=== PATIENT | female | born 1975 ===

== ENCOUNTER → 2017-03-14 | Outpatient (CLI) | payer OTHER | END | disposition home or self-care (01) | LOC: C.PAPS 09:49 | PROVIDERS: ATTEND Physician Assistant | DX: Z01.419 Encounter for gynecological examination (general) (routine) without abnormal findings (principal) ==

== ENCOUNTER → 2017-03-27 | Outpatient (CLI) | payer OTHER ==
[2017-03-27 12:21] LABS: BASO % 0.8 %; BASO ABS # 0.03 K/uL (0-0.2); COMPLETE YES; HEMATOCRIT 37.5 % (37-47); IG% 0.3 %; LYMPH % 22.3 %; LYMPH ABS # 0.83 K/uL (1.2-3.4); MEAN CELL VOLUME 86.4 fL (80-100); MEAN CORPUSCULAR HGB CONC 31.2 g/dl (32-36); MEAN PLATELET VOLUME 11.2 fL (7.4-10.4); MONO % 8.3 %; NEUT % 65.3 %; PLATELET COUNT 218 K/uL (130-400); RED BLOOD COUNT 4.34 M/uL (4.2-5.4); WHITE BLOOD COUNT 3.72 K/uL (4.8-10.8)
[2017-03-27 12:42] LABS: FERRITIN 7.1 ng/ml (8.0-388.0); THYROID STIMULATING HORMONE 0.841 uIu/ml (0.300-4.500); URIC ACID 4.8 mg/dl (2.6-7.2)
[2017-03-27 13:30] LABS: URINE APPEARANCE TURBID (CLEAR); URINE BILIRUBIN NEG (NEG); URINE COLOR YELLOW; URINE EPITHELIAL CELL AUTO 20-30 /lpf (0-5); URINE NITRITE NEG (NEG); URINE SPECIFIC GRAVITY 1.022 (1.000-1.030); UROBILINOGEN NEG (NEG); ZZUR CULT IF INDIC CLEAN CATCH NO
[2017-03-27 13:40] LABS: MANUAL MICROSCOPIC REQUIRED? NO; REVIEW REQ? NO
== END | disposition home or self-care (01) ==
LOC: C.LABBFT 08:48
PROVIDERS: ATTEND Physician Assistant Medical
DX: Z00.00 Encounter for general adult medical examination without abnormal findings (principal); D64.9 Anemia, unspecified; E03.9 Hypothyroidism, unspecified

== ENCOUNTER → 2018-03-16 | Outpatient (CLI) | payer OTHER ==
[2018-03-16 12:32] LABS: BASO % 0.2 %; BASO ABS # 0.01 K/uL (0-0.2); EOS % 2.2 %; HEMATOCRIT 38.8 % (37-47); HEMOGLOBIN 12.4 g/dL (12.0-16.0); IG# 0.01 K/uL (0.00-0.02); LYMPH % 19.8 %; LYMPH ABS # 0.92 K/uL (1.2-3.4); MEAN CELL VOLUME 86.8 fL (80-100); MEAN CORPUSCULAR HEMOGLOBIN 27.7 pg (25-34); MONO % 9.7 %; MONO ABS # 0.45 K/uL (0.11-0.59); NEUT % 67.9 %; NEUT ABS # 3.16 K/uL (1.4-6.5); PLATELET COUNT 216 K/uL (130-400); RED CELL DISTRIBUTION WIDTH CV 14.2 % (11.5-14.5); RED CELL DISTRIBUTION WIDTH SD 44.5 fL (36.4-46.3); WHITE BLOOD COUNT 4.65 K/uL (4.8-10.8)
[2018-03-16 12:51] LABS: ALBUMIN 3.4 gm/dl (3.4-5.0); ALT/SGPT 18 U/L (12-78); AST/SGOT 14 U/L (15-37); BLOOD UREA NITROGEN 13 mg/dl (7-18); CALCIUM 8.3 mg/dl (8.5-10.1); CARBON DIOXIDE 24 mmol/L (21-32); CHOLESTEROL 142 mg/dl (0-200); CREATININE 0.78 mg/dl (0.60-1.20); GLUCOSE 95 mg/dl (70-99); POTASSIUM 3.8 mmol/L (3.5-5.1); SODIUM 139 mmol/L (136-145)
[2018-03-16 12:59] LABS: ALKALINE PHOSPHATASE 100 U/L (45-117); LDL CHOLESTEROL CALCULATED 90 mg/dl; TOTAL PROTEIN 7.9 gm/dl (6.4-8.2); TRANSFERRIN 287 mg/dl (200-360)
== END | disposition home or self-care (01) ==
LOC: C.LABBFT 08:05
PROVIDERS: ATTEND Physician Assistant Medical
DX: Z00.00 Encounter for general adult medical examination without abnormal findings (principal); D64.9 Anemia, unspecified; E03.9 Hypothyroidism, unspecified

== ENCOUNTER → 2018-06-14 | Outpatient (CLI) | payer OTHER ==
--- NOTE | 2018-06-14 16:07 | MAMMOGRAPHY REPORT ---
BILATERAL DIGITAL DIAGNOSTIC MAMMOGRAM TOMOSYNTHESIS AND TARGETED BILATERAL ULTRASOUND: 06/14/2018 CLINICAL HISTORY: Callback from screening mammogram for bilateral asymmetries. TECHNIQUE: The study was acquired using full field digital technology and interpreted from soft copy. Breast tomosynthesis in addition to standard 2D mammography was performed. Spot compression bilater al CC and MLO 2D and tomosynthesis images were obtained. COMPARISON: Comparison is made to exam dated: 06/05/2018 mammogram - [facility]. BREAST COMPOSITION: The tissue of both breasts is almost entirely fatty. FINDINGS: Spot compression views demonstrate a persistent asymmetry within the right lateral breast, thought to project superiorly on the MLO view. The asymmetry is ill-defined but measures approximately 14 mm. Spot compression views of the left breast demonstrate a persistent asymmetry within the left slightl y medial breast, seen on the cc view only, measuring approximately 9 mm. On the additional tomosynth esis images the asymmetry has the appearance of fibroglandular tissue. Targeted ultrasound was performed of the left medial breast in the region of the mammographic asymmet ry. In the left 11:00 breast, 2 cm from the nipple, there is mixed echogenicity hyperechoic and isoe choic tissue, with isoechoic portion measuring approximately 4 x 5 x 5 mm. This may correspond with the mammographic asymmetry and may represent a focal island of fibroglandular tissue. In the right 1 0:00 breast far laterally there is a morphologically normal intramammary lymph node measuring 5 x 4 m m. Another morphologically normal intramammary lymph node measuring 7 x 3 mm is seen within the righ t 8:00 breast far laterally. In the right 9:00 breast, 6 cm from the nipple, there is a focal area o f mixed echogenicity hypoechoic and isoechoic tissue measuring 13 x 10 mm. This may correspond with the mammographic asymmetry and likely represents a focal island of fibroglandular tissue. No suspici ous solid masses were seen on targeted ultrasound. IMPRESSION: ACR-BI-RADS CATEGORY 3: PROBABLY BENIGN, ULTRASOUND ACR-BI-RADS CATEGORY 3: PROBABLY NATALIYA GN Bilateral asymmetries are probably benign and likely represent normal fibroglandular tissue. Recomme nd bilateral diagnostic tomosynthesis mammograms and possible targeted ultrasound in 6 months to conf irm stability, given no priors for comparison. (12/14/2018) The patient has been verbally notified of the results. Some breast cancers are not detected with mammography. A negative mammographic report should not parveen y biopsy if a clinically suggestive mass is present. Gracie Ingram M.D. ah/:06/14/2018 09:43:28 Machine Maintenance Repairer: RT Nigel(R)(M), [facility]; Gracie Ingram MD, [facility] letter sent: Follow Up Recommended 3 OVERALL STUDY BIRADS: 3 Probably benign
== END | disposition home or self-care (01) ==
LOC: C.MAMM 08:37
PROVIDERS: ATTEND Internal Medicine
DX: R92.8 Other abnormal and inconclusive findings on diagnostic imaging of breast (principal)